=== PATIENT | male | born 1950 | race Two or more races ===

== ENCOUNTER 2020-03-30 11:24 | Emergency (ER) | payer MEDICAID ==
[~2020-03-30] VITALS: Ht 162.6 cm; Wt 73.0 kg
[2020-03-30 11:55] VITALS: BP 130/48
[2020-03-30 12:23] LABS: BASOPHILS % 0.8 % (0.0-2.0); EOSINOPHILS % 2.5 % (0.0-5.0); HEMATOCRIT. 32.9 % (42.0-52.0); HEMOGLOBIN. 11.2 g/dL (14.0-18.0); LYMPHOCYTES % 12.5 % (20.0-50.0); MEAN CORPUSCULAR HEMOGLOBIN 34.4 pg (28.0-32.0); MEAN CORPUSCULAR VOLUME 101.5 fL (80.0-94.0); MEAN PLATELET VOLUME 8.2 fl (7.4-10.4); MONOCYTES % 9.1 % (2.0-8.0); NEUTROPHILS % 75.1 % (40.0-76.0); PLATELET 111 x1000/uL (130-400); RED BLOOD CELL COUNT 3.24 mill/uL (4.7-6.1); RED CELL DISTRIBUTION WIDTH 14.1 % (11.6-14.6)
[2020-03-30 12:24] LABS: CHLORIDE 99 mEq/L (98-107)
== END 2020-03-30 14:49 | disposition home or self-care (01) ==
LOC: ER 11:24
DX: E11.22 Type 2 diabetes mellitus with diabetic chronic kidney disease (principal); I12.9 Hypertensive chronic kidney disease with stage 1 through stage 4 chronic kidney disease, or unspecified chronic kidney disease; N18.9 Chronic kidney disease, unspecified; Z98.890 Other specified postprocedural states
CPT/HCPCS: 36415; 80053; 85025; 93005; 99284

== ENCOUNTER 2020-04-23 15:40 | Emergency (ER) | payer MEDICAID ==
[~2020-04-23] VITALS: Ht 167.6 cm; Wt 73.0 kg
[~2020-04-23 15:40] MED LIST: ATROPINE SULFATE 1MG/10ML SYR ONE; CALCIUM CHLORIDE 1GM/10ML SYR IV ONE; DEXTROSE 50% WATER 50ML SYRINGE IV ONE; EPINEPHRINE 0.1MG/ML (1:10,000) 10ML SYR ONE; SODIUM BICARBONATE 8.4% 1 MEQ/ML 50ML SYR IV ONE
[2020-04-23] MEDS ORDERED: NOREPINEPHRINE 8MG/250ML PMX 250 ML IV ONE (15:45)
[2020-04-23] MEDS ORDERED: EPINEPHRINE 5 MG in SODIUM CHLORIDE 0.9% 245 ML IV STA (15:46)
[2020-04-23] MEDS ORDERED: NOREPINEPHRINE 8MG/250ML PMX 250 ML IV STA (15:46)
[2020-04-23] MEDS ORDERED: CALCIUM CHLORIDE 1GM/10ML SYR IV ONE (16:00)
[2020-04-23] MEDS ORDERED: DEXTROSE 50% WATER 50ML SYRINGE IV ONE ×2 (16:00→17:00)
[2020-04-23] MEDS ORDERED: INSULIN REGULAR (HUMULIN R) 300UNITS/3ML VIAL IV ONE ×2 (16:00→16:30)
[2020-04-23] MEDS ORDERED: SODIUM CHLORIDE 0.9% 1000ML BAG (SEPSIS BOLUS) IV ONE (16:00)
[2020-04-23] MEDS ORDERED: NOREPINEPHRINE 8 MG in DEXTROSE 5% WATER 250 ML IV PRN (16:00)
[2020-04-23] MEDS ORDERED: EPINEPHRINE 5 MG in SODIUM CHLORIDE 0.9% 250 ML IV PRN (16:15)
[2020-04-23 16:16] LABS: HEMATOCRIT. 29.6 % (42.0-52.0); HEMOGLOBIN. 9.7 g/dL (14.0-18.0); MEAN CORPUSCULAR HEMOGLOBIN 33.7 pg (28.0-32.0); MEAN CORPUSCULAR VOLUME 103.4 fL (80.0-94.0); MEAN PLATELET VOLUME 9.9 fl (7.4-10.4); RED BLOOD CELL COUNT 2.86 mill/uL (4.7-6.1); RED CELL DISTRIBUTION WIDTH 14.8 % (11.6-14.6)
[2020-04-23 16:19] LABS: PLATELET 47 x1000/uL (130-400)
[2020-04-23 16:23] LABS: CHLORIDE 100 mEq/L (98-107)
[2020-04-23 16:25] LABS: INR 1.6; PROTHROMBIN TIME 16.7 sec (9.6-11.0)
[2020-04-23 16:27] LABS: ETHANOL BLOOD < 10 mg/dL
[2020-04-23] MEDS ORDERED: DOPAMINE 400MG/250ML PREMIX 250 ML IV STA (16:35)
[2020-04-23] MEDS ORDERED: ALTEPLASE 100MG/VIAL IV NR ×2 (16:45→17:00)
[2020-04-23 16:46] LABS: NUCLEATED RED BLOOD CELLS 2 /100 WBC; PLATELET ESTIMATE MARKEDLY DECREASED
[2020-04-23] MEDS ORDERED: SODIUM CHLORIDE 0.9% 10ML VIAL ONE (17:00)
[2020-04-23] MEDS ORDERED: EPINEPHRINE 0.1MG/ML (1:10,000) 10ML SYR ONE (17:00)
[2020-04-23] MEDS ORDERED: DOPAMINE 400 MG PREMIX 250 ML IV PRN (17:15)
[2020-04-23 18:46] VITALS: BP 48/20
== END 2020-04-24 05:30 | disposition expired ==
LOC: ER 15:40
DX: I46.9 Cardiac arrest, cause unspecified (principal); I13.2 Hypertensive heart and chronic kidney disease with heart failure and with stage 5 chronic kidney disease, or end stage renal disease; E11.22 Type 2 diabetes mellitus with diabetic chronic kidney disease; N18.6 End stage renal disease; I50.9 Heart failure, unspecified; F17.200 Nicotine dependence, unspecified, uncomplicated; Z98.890 Other specified postprocedural states; Z99.2 Dependence on renal dialysis
CPT/HCPCS: 31500; 36415; 36556; 37195; 80053; 80320; 82962; 83605; 84145; 84484; 85025; 85610; 92950; 93005; 96365; 96366; 96367; 96368; 96375; 96376; 99285; J0461; J1265; J1815; J2997; J3490; J7030; J7050; J7060; G0480